=== PATIENT | male | born 1995 | race Caucasian/White ===

== ENCOUNTER 2019-01-07 03:11 | Emergency (ER) | payer BC ==
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
[2019-01-07] MEDS ORDERED: Acetaminophen 500 MG TAB PO ONE (05:40)
[2019-01-07] MEDS ORDERED: Acetaminophen 500 MG TAB ONE (05:41)
== END 2019-01-07 06:51 | disposition home or self-care (01) ==
LOC: ER 03:11
DX: R51 Headache (principal)
CPT/HCPCS: 99283; 96372; J1885; Z7502; Z7610